=== PATIENT | male | born 2000 | race American Indian/Alaskan Native ===

== ENCOUNTER 2021-01-16 11:38 | Emergency (ER) | payer SELFPAY ==
[2021-01-16 12:06] VITALS: BP 123/66
--- NOTE | 2021-01-16 13:11 | Emergency Department Report ---
ED General Adult HPI - General Chief complaint: Anxiety Stated complaint: ANIXETY Time Seen by Provider: 01/16/21 13:05 Source: patient Mode of arrival: Ambulatory Limitations: No Limitations - History of Present Illness Initial comments: 20-year-old male patient with history of generalized anxiety disorder presents to the emergency department with complaints of worsening anxiety. Patient states that he has been out of his medication for approximately 1 month. He typically takes olanzapine 5 mg. He is not currently under the care of a primary care provider or psychiatrist. He is staying in [place] with his aunt. His aunt states that he has been under a lot of stress lately. Patient feels safe at home. Denies drug abuse, alcohol abuse, suicidal ideation, homicidal ideation, hallucinations. Denies other complaints at this time. - Related Data Previous Rx's Medication Instructions Recorded Last Taken Type Hydroxyzine HCl [hydrOXYzine] 50 mg PO TID 7 Days tablet 01/16/21 Unknown Rx Allergies Allergy/AdvReac Type Severity Reaction Status Date / Time No Known Allergies Allergy Unverified 01/16/21 12:02 ED Review of Systems ROS: Stated complaint: ANIXETY Other details as noted in HPI Other: GENERAL: Negative for fever. CARDIOVASCULAR: Negative for chest pain. PULMONARY: Negative for shortness of breath. GASTROINTESTINAL: Negative for abdominal pain. MUSCULOSKELETAL: Negative for back pain. NEUROLOGICAL: Negative for headache. INTEGUMENTARY: Negative for rash. PSYCH: Positive for anxiety. ED Past Medical Hx - Past Medical History Previous Medical History?: Yes Hx Psychiatric Treatment: Yes (anxiety) - Surgical History Past Surgical History?: No - Social History Smoking Status: Never Smoker Substance Use Type: None - Medications Home Medications: Home Medications Medication Instructions Recorded Confirmed Last Taken Type Hydroxyzine HCl [hydrOXYzine] 50 mg PO TID 7 Days tablet 01/16/21 Unknown Rx ED Physical Exam - General Limitations: No Limitations - Other Other exam information: General: Awake, appropriately interactive, no acute distress. Neck: Supple. Full range of motion intact. Cardiovascular: Normal peripheral perfusion. Pulmonary: No respiratory distress. Patient is speaking normally without use of accessory muscles. Skin: No apparent rashes or lesions. Neurological: No facial asymmetry. Speech is clear. Follows commands. Patient is alert and oriented. Musculoskeletal: Moves all four extremities spontaneously with normal range of motion. Psych: Cooperative. Appropriate mood and affect. ED Course Vital Signs 01/16/21 12:02 Temperature 98.4 F Pulse Rate 77 Respiratory 18 Rate Blood Pressure 123/66 O2 Sat by Pulse 100 Oximetry ED Medical Decision Making - Medical Decision Making Differential diagnosis including but not limited to: anxiety, depression, personality disorder, bipolar disorder Patient presents to the emergency department requesting a refill of his anxiety medication. He states his anxiety is not any different today than normal. He denies suicidal ideation/homicidal ideation. He feels safe at home. He is accompanied by his aunt, with whom he is staying. She does not have any additional concerns other than him being out of his medications. He normally takes olanzapine 5 mg. It was explained to the patient and his aunt that anti psychotic medications are not typically refilled from the emergency department. He will be prescribed a short course of hydroxyzine and referred to local psychiatry to establish care and arrange for long-term management of his anxiety disorder. Patient expressed understanding is agreeable to plan of care. Strict return precautions provided. Repeat exam is unremarkable and benign. History, exam, diagnostic testing, and current condition do not suggest worrisome pathology to warrant further testing, continued ED treatment, admission, or surgical evaluation at this point. Given the low probability of a significant medical illness, it would be more likely to result in harm than benefit to perform further testing at this stage. Discussed findings, presumptive diagnosis, need for follow-up and specific signs/symptoms that should prompt immediate return to the emergency department. Instructions were explained in detail to the patient in addition to giving written discharge information. Patient expressed understanding and was given the opportunity to ask questions, all of which were satisfactorily answered prior to discharge home. BILLING/CODING: Please note this patient encounter does not represent a certified medical emergency. Critical care attestation.: If time is entered above; I have spent that time in minutes in the direct care of this critically ill patient, excluding procedure time. ED Disposition Clinical Impression: Encounter for medication refill, History of anxiety Disposition: DC-01 TO HOME OR SELFCARE Is pt being admited?: No Does the pt Need Aspirin: No Condition: Stable Instructions: Generalized Anxiety Disorder, Adult Additional Instructions: Take Hydroxyzine as directed. You must establish care with a local primary care provider and/or psychiatrist for long-term management of this condition. Please see referral information below. Return to the emergency department immediately for new or worsening symptoms. Prescriptions: Hydroxyzine HCl [hydrOXYzine] 50 mg PO TID 7 Days tablet Referrals: SOULEYMANE FONTANA MD [Staff Physician] - 3-5 Days BRYANT GUNTER MD [Referring] - 3-5 Days Time of Disposition: 13:11
== END 2021-01-16 13:58 | disposition home or self-care (01) ==
LOC: ED 11:38
DX: F41.9 Anxiety disorder, unspecified (principal); Z76.0 Encounter for issue of repeat prescription; Z79.899 Other long term (current) drug therapy
CPT/HCPCS: 99282

== ENCOUNTER 2021-01-24 10:14 | Emergency (ER) | payer SELFPAY ==
[2021-01-24 10:55] VITALS: BP 132/84
--- NOTE | 2021-01-24 11:00 | Emergency Department Report ---
Chief Complaint: Medical Clearance Stated Complaint: SORE THROAT Time Seen by Provider: 01/24/21 10:45 - HPI History of Present Illness: 21-year-old male patient with history of anxiety disorder presents to the emergency department for "a check-up." States his throat has been intermittently uncomfortable for many years. He has never followed up with a primary care provider. He is currently asymptomatic. No other symptoms. - ROS Review of Systems: GENERAL: Negative for fever. CARDIOVASCULAR: Negative for chest pain. ENT: Positive for sore throat. PULMONARY: Negative for shortness of breath. GASTROINTESTINAL: Negative for abdominal pain. MUSCULOSKELETAL: Negative for back pain. NEUROLOGICAL: Negative for headache. INTEGUMENTARY: Negative for rash. - Exam Vital Signs: Vital Signs 01/24/21 10:51 Temperature 98.9 F Pulse Rate 74 Respiratory 20 Rate Blood Pressure 132/84 O2 Sat by Pulse 96 Oximetry Physical Exam: General: Awake, appropriately interactive, no acute distress. ENT: Normal otoscopic exam. Normal pharyngeal exam. Neck: Supple. Full range of motion intact. Cardiovascular: Normal peripheral perfusion. Pulmonary: No respiratory distress. Patient is speaking normally without use of accessory muscles. Skin: No apparent rashes or lesions. Neurological: No facial asymmetry. Speech is clear. Follows commands. Patient is alert and oriented. Musculoskeletal: Moves all four extremities spontaneously with normal range of motion. Psych: Cooperative. Appropriate mood and affect. MSE screening note: Focused history and physical exam performed. Due to findings the following was ordered: ED Medical Decision Making - Medical Decision Making Patient presents emergency department "for a checkup." He is afebrile. Vital signs are stable. His only complaint is ongoing intermittent discomfort in his throat for "years." Patient's presentation was discussed with the triage nurse, who states that patient's relative is being evaluated in the emergency department, and since he cannot accompany her to the examination room per current COVID-19 visitor restrictions, he decided at that point he would sign in as a patient so that he could sit with her in the emergency department. Patient will be discharged home with referral to local primary care provider to establish care. Strict return precautions provided. ED Disposition for MSE Clinical Impression: Examination for, medical, general Disposition: Z- MED SCREENING EXAM-CONT Is pt being admited?: No Does the pt Need Aspirin: No Condition: Stable Additional Instructions: Take Tylenol every 4 hours as needed for pain. You must establish care with a local primary care provider for definitive m anagement of chronic issues. See referral information below. Return to the emergency department immediately for new or worsening symptoms. Referrals: YOKO CHAPIN MD [Staff Physician] - 3-5 Days Time of Disposition: 10:58
== END 2021-01-24 12:52 | disposition home or self-care (01) ==
LOC: ED 10:14
DX: J02.9 Acute pharyngitis, unspecified (principal); Z53.21 Procedure and treatment not carried out due to patient leaving prior to being seen by health care provider

== ENCOUNTER 2021-06-11 06:53 | Emergency (ER) | payer SELFPAY ==
--- NOTE | 2021-06-11 08:31 | Event Note ---
ED Screening Note Date of service: 06/11/21 Time: 08:28 ED Screening Note: Patient is a poor historian, and so history had to be obtained from Mom. Mom reports that patient has history of schizophrenia in the past 2 days she noticed that he has been having anxiety and is concerned that he is having a psychotic break. She denies any SI or HI or apparent hallucinations. She states that patient has not been compliant with his medication for several months and he does not currently have a psychiatrist. Patient does admit to alcohol use daily but he denies marijuana use or any other illicit drug use Mom states that his last psych admission was in 2016. She states that he has never attempted suicide in the past. This initial assessment/diagnostic orders/clinical plan/treatment(s) is/are subject to change based on patients health status, clinical progression and re- assessment by fellow clinical providers in the ED. Further treatment and workup at subsequent clinical providers discretion. Patient/guardian urged not to elope from the ED as their condition may be serious if not clinically assessed and managed. Initial orders include: Psych order set
[2021-06-11 09:49] LABS: Basophils # (Auto) 0.2 K/mm3 (0.0-0.1); Basophils % (Auto) 2.9 % (0.0-1.8); Eosinophils % (Auto) 0.4 % (0.0-4.3); Hematocrit 47.4 % (35.5-45.6); Lymphocytes # (Auto) 1.2 K/mm3 (1.2-5.4); Lymphocytes % (Auto) 16.4 % (13.4-35.0); Mean Corpuscular HGB Conc 34 % (32-34); Mean Corpuscular Volume 87 fl (84-94); Monocytes # (Auto) 0.4 K/mm3 (0.0-0.8); Monocytes % (Auto) 5.3 % (0.0-7.3); Platelet Count 289 K/mm3 (140-440); Red Blood Count 5.48 M/mm3 (3.65-5.03); Red Cell Distribution Width 14.1 % (13.2-15.2)
[2021-06-11 09:58] LABS: BUN/Creatinine Ratio 9; Blood Urea Nitrogen 11 mg/dL (9-20); Calcium 10.3 mg/dL (8.4-10.2); Hemolysis Index 7
--- NOTE | 2021-06-11 13:49 | Emergency Department Report ---
ED Psych HPI - General Chief Complaint: Anxiety Stated Complaint: ANXIETY Time Seen by Provider: 06/11/21 13:39 Source: patient Mode of arrival: Ambulatory - History of Present Illness Initial Comments: Patient is 21 years old male with history of schizophrenia. Patient presented to the ER stating that he is having depression and anxiety. Patient stated that his symptoms have been going on for a month but for the last few days getting worse. Patient stated that he is wishing to be now. Patient stated that he is thinking about killing himself but he does not have a clear plan. He told me that he thought about this this morning and also last night. A nurse already spoke to the patient mother and she stated that she noticed that he has been very anxious and agitated recently. She stating that he is having psychosis. Patient denied any homicidal ideation. He also denied any visual or auditory hallucination. MD Complaint: suicidal ideation, feels depressed -: days(s) Associated Psychiatric Symptoms: depression, suicidal ideation History of same: Yes Quality: intermittent Associated Symptoms: denies other symptoms Treatments Prior to Arrival: none If Self Harm: admits thoughts of - Related Data Previous Rx's Medication Instructions Recorded Last Taken Type Hydroxyzine HCl [hydrOXYzine] 50 mg PO TID 7 Days tablet 01/16/21 Unknown Rx Allergies Allergy/AdvReac Type Severity Reaction Status Date / Time No Known Allergies Allergy Verified 06/11/21 07:07 ED Review of Systems ROS: Stated complaint: ANXIETY Other details as noted in HPI Comment: All other systems reviewed and negative Constitutional: denies: chills, fever Respiratory: denies: cough, shortness of breath Cardiovascular: denies: chest pain, palpitations Gastrointestinal: denies: abdominal pain, nausea, vomiting Musculoskeletal: denies: back pain Neurological: denies: headache, weakness, numbness, paresthesias, confusion, abnormal gait Psychiatric: anxiety, depression, suicidal thoughts. denies: auditory hallucinations, visual hallucinations, homicidal thoughts ED Past Medical Hx - Past Medical History Hx Psychiatric Treatment: Yes (anxiety) Hx Asthma: Yes - Social History Smoking Status: Never Smoker Substance Use Type: None - Medications Home Medications: Home Medications Medication Instructions Recorded Confirmed Last Taken Type Hydroxyzine HCl [hydrOXYzine] 50 mg PO TID 7 Days tablet 01/16/21 Unknown Rx ED Physical Exam - General Limitations: No Limitations General appearance: alert, in no apparent distress - Head Head exam: Present: atraumatic, normocephalic, normal inspection - Eye Eye exam: Present: normal appearance - ENT ENT exam: Present: normal exam, normal orophraynx, mucous membranes moist - Neck Neck exam: Present: normal inspection, full ROM. Absent: tenderness, meningismus - Respiratory Respiratory exam: Present: normal lung sounds bilaterally - Cardiovascular Cardiovascular Exam: Present: regular rate, normal rhythm, normal heart sounds - GI/Abdominal GI/Abdominal exam: Present: soft, normal bowel sounds. Absent: distended, tenderness, guarding, rebound, rigid, organomegaly, mass, bruit, pulsatile mass, hernia - Extremities Exam Extremities exam: Present: normal inspection, full ROM, normal capillary refill. Absent: tenderness, pedal edema, joint swelling, calf tenderness - Back Exam Back exam: Present: normal inspection, full ROM. Absent: CVA tenderness (R), CVA tenderness (L) - Neurological Exam Neurological exam: Present: alert, oriented X3, CN II-XII intact, normal gait, reflexes normal. Absent: motor sensory deficit - Psychiatric Psychiatric exam: Present: flat affect, suicidal ideation. Absent: agitated, manic, homicidal ideation - Skin Skin exam: Present: warm, intact, normal color ED Course Vital Signs 06/11/21 06/11/21 07:10 13:49 Temperature 99.6 F Pulse Rate 90 Respiratory 20 Rate Blood Pressure 142/97 O2 Sat by Pulse 95 95 Oximetry ED Medical Decision Making - Lab Data Result diagrams: 06/11/21 08:54 06/11/21 08:54 Critical care attestation.: If time is entered above; I have spent that time in minutes in the direct care of this critically ill patient, excluding procedure time. ED Disposition Condition: Stable Additional Instructions: Professional and Agency Contacts To help [facility] (09/05) [place] Crisis Line: Suicide Prevention Line: Crisis Text Line: Text START to [phone] Emergency: 911 Outpatient COMMUNITY Behavioral Health Resources: [place]: [facility] [address], [place] [address] [facility] [address] [place] [address] Tuesday thru Tuesday - 8am - 5pm Call to schedule an assessment for mental health and substance abuse programs [facility] Address: [address] [place] [address] Tuesday thru Tuesday- 7am-2pm [facility] Address: [address] [place] [address] Tuesday thrtuesday: 8:30AM-5PM
[2021-06-11 15:36] LABS: Amphetamine Screen,Urine Negative; Benzodiazepines Screen,Urine Negative; Cannabinoid Screen,Urine Negative; Cocaine Screen,Urine Negative; Methadone Screen,Urine Negative; Opiate Screen,Urine Negative
[2021-06-11 15:39] LABS: Bilirubin,Urine NEG (Negative); Blood,Urine NEG (Negative); Color,Urine Yellow (Yellow); Mucus,Urine FEW /HPF; Protein,Urine <15 mg/dL mg/dL (Negative); RBC,Urine < 1.0 /HPF (0.0-6.0); Urobilinogen,Urine < 2.0 mg/dL (<2.0)
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
--- NOTE | 2021-06-12 11:46 | Emergency Department Report ---
Blank Doc - Documentation Documentation: SOAP note 21-year-old male presented yesterday with anxiety and suicidal ideation without plan. Noncompliant with meds Objective: Patient has no complaints. Denies suicidal ideation, homicidal ideation, or psychosis. Vital signs normal. No events overnight as per nurses. No meds overnight Vital Signs - 24 hr 06/11/21 06/11/21 06/12/21 13:49 19:59 02:35 Temperature 98.7 F 97.6 F Pulse Rate 65 63 Respiratory 18 18 Rate Blood Pressure 118/70 143/69 [Right] O2 Sat by Pulse 95 94 97 Oximetry 06/12/21 09:00 Temperature 98.6 F Pulse Rate 77 Respiratory 16 Rate Blood Pressure 136/74 [Right] O2 Sat by Pulse 97 Oximetry Assessment: Schizophrenia with medication noncompliance Plan: Cleared by mental health for discharge on Zyprexa. Outpatient psychiatric follow-up recommended.
[2021-06-12 13:47] VITALS: BP 132/83
== END 2021-06-12 13:46 | disposition home or self-care (01) ==
LOC: ED 06:53
DX: F41.9 Anxiety disorder, unspecified (principal); J45.909 Unspecified asthma, uncomplicated; Z20.822 Contact with and (suspected) exposure to COVID-19; Z79.899 Other long term (current) drug therapy
CPT/HCPCS: 36415; 80048; 80307; 81001; 85025; 99284; U0003; 80320; G0480

== ENCOUNTER 2021-12-13 10:43 | Emergency (ER) | payer SELFPAY ==
--- NOTE | 2021-12-13 11:30 | Emergency Department Report ---
ED Anxiety HPI - General Chief Complaint: Anxiety Stated Complaint: ANXIETY Time Seen by Provider: 12/13/21 11:23 Source: patient Mode of arrival: Ambulatory - History of Present Illness Initial Comments: Resident states he came in d/t increased Anxiety. States he's had anxiety episodes x's 4 years and he needs something to help.denies SI or HI ran out of oolpriscapine Complaint: anxiety -: Gradual, days(s) Symptoms: palpitations Place: home Previous History of Same: No Severity: mild Worsens With: nothing - Related Data Home Medications: Previous Rx's Medication Instructions Recorded Last Taken Type Hydroxyzine HCl [hydrOXYzine] 50 mg PO TID 7 Days tablet 01/16/21 Unknown Rx OLANzapine [ZyPREXA] 10 mg PO DAILY 30 Days #30 tablet 06/12/21 Unknown Rx OLANZapine [Olanzapine] 10 mg PO DAILY #15 12/13/21 Unknown Rx Allergies/Adverse Reactions: Allergies Allergy/AdvReac Type Severity Reaction Status Date / Time No Known Allergies Allergy Verified 06/12/21 11:27 ED Review of Systems ROS: Stated complaint: ANXIETY Other details as noted in HPI Constitutional: denies: chills, fever Eyes: denies: eye pain, eye discharge, vision change ENT: denies: ear pain, throat pain Respiratory: denies: cough, shortness of breath, wheezing Cardiovascular: denies: chest pain, palpitations Endocrine: no symptoms reported Gastrointestinal: denies: abdominal pain, nausea, diarrhea Genitourinary: denies: urgency, dysuria Musculoskeletal: denies: back pain, joint swelling, arthralgia Skin: denies: rash, lesions Neurological: denies: headache, weakness, paresthesias Psychiatric: denies: anxiety, depression Hematological/Lymphatic: denies: easy bleeding, easy bruising ED Past Medical Hx - Past Medical History Previous Medical History?: No Hx Hypertension: No Hx Psychiatric Treatment: Yes (anxiety) Hx Asthma: Yes - Social History Smoking Status: Never Smoker Substance Use Type: None - Medications Home Medications: Home Medications Medication Instructions Recorded Confirmed Last Taken Type Hydroxyzine HCl [hydrOXYzine] 50 mg PO TID 7 Days tablet 01/16/21 Unknown Rx OLANzapine [ZyPREXA] 10 mg PO DAILY 30 Days #30 tablet 06/12/21 Unknown Rx OLANZapine [Olanzapine] 10 mg PO DAILY #15 12/13/21 Unknown Rx ED Physical Exam - General Limitations: No Limitations General appearance: alert, in no apparent distress - Head Head exam: Present: atraumatic, normocephalic - Eye Eye exam: Present: normal appearance - ENT ENT exam: Present: mucous membranes moist - Neck Neck exam: Present: normal inspection - Respiratory Respiratory exam: Present: normal lung sounds bilaterally. Absent: respiratory distress - Cardiovascular Cardiovascular Exam: Present: regular rate, normal rhythm. Absent: systolic murmur, diastolic murmur, rubs, gallop - GI/Abdominal GI/Abdominal exam: Present: soft, normal bowel sounds - Rectal Rectal exam: Present: deferred - Extremities Exam Extremities exam: Present: normal inspection - Back Exam Back exam: Present: normal inspection - Neurological Exam Neurological exam: Present: alert, oriented X3 - Psychiatric Psychiatric exam: Present: normal affect, normal mood - Skin Skin exam: Present: warm, dry, intact, normal color. Absent: rash ED Course Vital Signs 12/13/21 11:12 Temperature 98.2 F Pulse Rate 78 Respiratory 16 Rate Blood Pressure 128/83 [Right] O2 Sat by Pulse 97 Oximetry Critical care attestation.: If time is entered above; I have spent that time in minutes in the direct care of this critically ill patient, excluding procedure time. ED Disposition Clinical Impression: Anxiety Disposition: 01 HOME / SELF CARE / HOMELESS Is pt being admited?: No Does the pt Need Aspirin: No Condition: Stable Prescriptions: OLANZapine [Olanzapine] 10 mg PO DAILY #15
[2021-12-13 11:59] VITALS: BP 145/85
== END 2021-12-13 11:59 | disposition home or self-care (01) ==
LOC: ED 10:43
DX: F41.9 Anxiety disorder, unspecified (principal); J45.909 Unspecified asthma, uncomplicated
CPT/HCPCS: 99282